=== PATIENT | male | born 1995 | race Caucasian/White ===

== ENCOUNTER 2020-03-23 19:51 | Emergency (ER) | payer MEDICAID, OTHER, SELFPAY ==
[~2020-03-23] VITALS: Ht 185.4 cm; Wt 131.5 kg
[2020-03-23 20:10] VITALS: BP_SYST 164
--- NOTE | 2020-03-23 20:10 | NUR ---
Patient triaged and placed in TENT. VSS and patient appears in no acute distress at this time. Accompanied by SELF, awaiting available bed, and MD notified of need for MSE.
--- NOTE | 2020-03-23 20:15 | NUR ---
PT A&O X4 FROM HOME C/O OF SORE THROAT, NEW LOSS OF TASTE, PRESSURE LIKE HEADACHE, COUGH, AND BODY ACHES THAT STARTED EARLIER TODAY. PT STATES HIS [employer]ERS NOTICED HE WAS MORE PALE AT WORK THAN NORMAL. PT DENIES SHORTNESS OF BREATH, CHEST PAIN.
--- NOTE | 2020-03-23 22:15 | NUR ---
ER Dr. Rod at bedside examining patient.
[2020-03-24 00:20] VITALS: BP_SYST 144
--- NOTE | 2020-03-24 00:20 | NUR ---
Patient given written and verbal discharge instructions and verbalizes understanding. ER MD discussed with patient the results and treatment provided. Patient in stable condition. ID arm band removed. no Rx given. Patient educated on pain management and to follow up with PMD. Pain Scale 5/10. Opportunity for questions provided and answered. Medication side effect fact sheet provided.
--- NOTE | 2020-03-25 16:20 | NUR ---
Covid results Patient called to [facility] requesting results - 1995 - informed pt results are negative, verbalized complete understanding.
== END 2020-03-24 00:20 | disposition home or self-care (01) ==
LOC: SED 19:51
DX: R05 Cough (principal); Z20.828 Contact with and (suspected) exposure to other viral communicable diseases
CPT/HCPCS: 99283; C9803; U0003

== ENCOUNTER 2020-03-30 21:20 | Emergency (ER) | payer SELFPAY ==
[~2020-03-30] VITALS: Ht 175.3 cm; Wt 122.5 kg
[2020-03-30 21:20] VITALS: BP_SYST 167
--- NOTE | 2020-03-30 21:20 | NUR ---
Patient to tent for evaluation. Side rails up.
--- NOTE | 2020-03-30 21:25 | NUR ---
KECIA Oh at bedside examining patient.
[2020-03-30 21:35] VITALS: BP_SYST 154
--- NOTE | 2020-03-30 21:35 | NUR ---
Patient given written and verbal discharge instructions and verbalizes understanding. ER MD discussed with patient the results and treatment provided. Patient in stable condition. ID arm band removed. No Rx given. Patient educated on pain management and to follow up with PMD. Pain Scale 0. Opportunity for questions provided and answered. Medication side effect fact sheet provided.
--- NOTE | 2020-04-01 14:13 | NUR ---
Covid results Patient called requesting results, 1995 , states completed 2 days ago- encouraged to wait x 72 hours - pt demanded results NOW. Advised pt - not at a pc and obtained number to return call. Called results to pt - negative , verbalized complete understanding. Pt requested copy of results- advised will transfer call to medical records, states he already talked to them just now to obtain the results.
== END 2020-03-30 21:35 | disposition home or self-care (01) ==
LOC: SED 21:20
DX: B34.9 Viral infection, unspecified (principal); R50.9 Fever, unspecified; R05 Cough; R63.0 Anorexia; M79.18 Myalgia, other site; R43.2 Parageusia; Z20.828 Contact with and (suspected) exposure to other viral communicable diseases
CPT/HCPCS: 99283; C9803; U0003

== ENCOUNTER 2020-05-24 21:00 | Emergency (ER) | payer MEDICAID, SELFPAY ==
[~2020-05-24] VITALS: Ht 185.4 cm; Wt 131.5 kg
[2020-05-24 21:20] VITALS: BP_SYST 157
--- NOTE | 2020-05-24 21:20 | NUR ---
Patient to ER bed 3 to gown for evaluation. Side rails up. Report given to Ella HEWITT.
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
--- NOTE | 2020-05-24 21:32 | NUR ---
X ray at bedside.
--- NOTE | 2020-05-24 21:33 | NUR ---
ER at bedside examining patient.
--- NOTE | 2020-05-24 22:00 | NUR ---
L hand splint placed on pt.
[2020-05-24 22:13] VITALS: BP_SYST 157
--- NOTE | 2020-05-24 22:13 | NUR ---
Patient given written and verbal discharge instructions and verbalizes understanding. ER MD discussed with patient the results and treatment provided. Patient in stable condition. ID arm band removed. Rx of motrin and norco given. Patient educated on pain management and to follow up with PMD. Opportunity for questions provided and answered. Medication side effect fact sheet provided.
== END 2020-05-24 22:13 | disposition home or self-care (01) ==
LOC: SED 21:00
DX: S62.327A Displaced fracture of shaft of fifth metacarpal bone, left hand, initial encounter for closed fracture (principal); X50.1XXA Overexertion from prolonged static or awkward postures, initial encounter; Y93.89 Activity, other specified; Y92.89 Other specified places as the place of occurrence of the external cause; Y99.8 Other external cause status
CPT/HCPCS: 99283